=== PATIENT | male | born 1985 | race Caucasian/White ===

== ENCOUNTER 2018-05-10 12:50 | Emergency (ER) | payer SELFPAY ==
[2018-05-10 15:02] LABS: Potassium 3.9 mEq/L (3.6-5.0)
[2018-05-10 15:04] LABS: Absolute Lymphocytes (CBC) 1.7 K/uL (0.7-4.9); Absolute Monocytes 0.5 K/uL (0.1-1.3); Absolute Neutrophil 4.9 K/uL (1.8-8.0); Basophils % 1.2 % (0-1.3); Eosinophils % 2.5 % (0-4.4); Hematocrit 43.1 % (39.6-49.0); Lymphocytes % 23.3 % (15.3-44.8); MCH 30.5 pg (27.0-35.0); MCV 88.6 fL (80-100); MPV 8.5 fL (7.6-11.3); Monocytes % 7.1 % (3.3-12.3); RBC Red Blood Cell Count 4.86 M/uL (4.33-5.43)
[2018-05-10 15:08] LABS: Albumin 4.3 g/dL (3.2-5.5); Bilirubin Direct 0.1 mg/dL (0-0.2); Bilirubin Total 0.7 mg/dL (0.3-1.2); Magnesium 1.9 mg/dL (1.8-2.5); Protein, Total 7.5 g/dL (6.0-8.3); Protime INR 0.98
--- NOTE | 2018-05-10 15:29 | RAD REPORT ---
EXAM DESCRIPTION: Ilda Single View05/10/2018 2:51 pm CLINICAL HISTORY: Chest pain COMPARISON: August 2017 FINDINGS: The lungs appear clear of acute infiltrate. The heart is mildly enlarged. Prominence of t he belinda is unchanged IMPRESSION: No acute abnormalities displayed
--- NOTE | 2018-05-10 15:54 | EDPHYS ---
Physician Documentation [facility] Name: Zion Anand Age: 32 yrs Sex: Male : 1985 Arrival Date: 05/10/2018 Time: 12:53 Bed 26 Private MD: ED Physician Robin Encinas HPI: 05/10 14:54 This 32 yrs old Male presents to ER via Ambulatory with complaints of Chest jmm Pain - 4 days. 14:54 The patient or guardian reports chest pain that is located primarily in the substernal m area. The pain does not radiate. Associated signs and symptoms: Pertinent negatives: shortness of breath. The chest pain is described as aching. Duration: The patient or guardian reports multiple episodes, that are intermittent. 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 Patient admits to distant history of tobacco and IV drug use but denies use in the past 8 months. . Historical: - Allergies: 13:23 No Known Allergies; aa5 - PMHx: 13:23 "Lung collapsed"; aa5 - PSHx: 13:21 cleft pallet repair; open heart surgery (murmur); aa5 - Immunization history:: Adult Immunizations unknown. - Social history:: Smoking status: Patient/guardian denies using tobacco. - Ebola Screening: : No symptoms or risks identified at this time. ROS: 14:54 Constitutional: Negative for fever, chills, and weight loss. jmm 14:54 Respiratory: Negative for shortness of breath, cough, wheezing, and pleuritic chest pain, Abdomen/GI: Negative for abdominal pain, nausea, vomiting, diarrhea, and constipation, Back: Negative for injury and pain, : Negative for injury, bleeding, discharge, and swelling, MS/Extremity: Negative for injury and deformity, Skin: Negative for injury, rash, and discoloration, Neuro: Negative for headache, weakness, numbness, tingling, and seizure. 14:54 Cardiovascular: Positive for chest pain. 14:54 All other systems are negative. Exam: 14:54 Head/Face: atraumatic. Chest/axilla: Normal chest wall appearance and motion. jmm Nontender with no deformity. No lesions are appreciated. Abdomen/GI: Soft, non-tender, with normal bowel sounds. No distension or tympany. No guarding or rebound. No evidence of tenderness throughout. 14:54 Skin: Warm, dry with normal turgor. Normal color with no rashes, no lesions, and no evidence of cellulitis. MS/ Extremity: Pulses equal, no cyanosis. Neurovascular intact. Full, normal range of motion. Neuro: Awake and alert, GCS 15, oriented to person, place, time, and situation. Motor strength 5/5 in all extremities. Sensory grossly intact. Cerebellar exam normal. Normal gait. 14:54 Constitutional: The patient appears in no acute distress, alert, awake. 14:54 Cardiovascular: Rate: normal, Rhythm: regular, Heart sounds: murmur. 14:54 Psych: Behavior/mood is pleasant, cooperative. Vital Signs: 13:23 BP 119 / 78; Pulse 76; Resp 16 S; Temp 98.3(TE); Pulse Ox 98% on R/A; Weight 68.04 kg aa5 (R); Height 5 ft. 4 in. (162.56 cm) (R); Pain 0/10; 14:17 BP 103 / 69; Pulse 77; Resp 18; Pulse Ox 96% on R/A; aj1 15:33 BP 104 / 82; Pulse 67; Resp 18; Pulse Ox 97% on R/A; aj1 17:08 BP 121 / 76; Pulse 67; Resp 16; Pulse Ox 99% on R/A; kr2 13:23 Body Mass Index 25.75 (68.04 kg, 162.56 cm) aa5 MDM: 14:53 Patient medically screened. [facility] 14:54 Data reviewed: vital signs, nurses notes. [facility] 15:38 Differential diagnosis: acute myocardial infarction, acute pericarditis, chest wall jm pain, costochondritis, gastritis, gastroesophageal reflux disease (GERD), myocarditis, pulmonary embolus. Counseling: I had a detailed discussion with the patient and/or guardian regarding: the historical points, exam findings, and any diagnostic results supporting the discharge/admit diagnosis, lab results, radiology results, the need for outpatient follow up, to return to the emergency department if symptoms worsen or persist or if there are any questions or concerns that arise at home. ED course: HEART SCORE = 0. ED course: PERC NEGATIVE. 05/10 14:31 Order name: Basic Metabolic Panel; Complete Time: 15:29 ss 06/15 14:31 Order name: BNP; Complete Time: 15:29 05/10 14:31 Order name: CBC with Diff; Complete Time: 15:37 05/10 14:31 Order name: Ckmb; Complete Time: 15:29 05/10 14:31 Order name: CPK; Complete Time: 15:29 05/10 14:31 Order name: LFT's; Complete Time: 15:29 05/10 14:31 Order name: Magnesium; Complete Time: 15:29 05/10 14:31 Order name: PT-INR; Complete Time: 15:29 05/10 14:31 Order name: Ptt, Activated; Complete Time: 15:29 05/10 14:31 Order name: Troponin (emerg Dept Use Only); Complete Time: 15:29 05/10 14:31 Order name: XRAY Chest (1 view); Complete Time: 15:31 05/10 14:31 Order name: EKG; Complete Time: 14:31 05/10 14:31 Order name: Cardiac monitoring; Complete Time: 14:40 05/10 14:31 Order name: EKG - Nurse/Tech; Complete Time: 14:40 05/10 14:31 Order name: IV Saline Lock; Complete Time: 14:40 05/10 14:31 Order name: Labs collected and sent; Complete Time: 14:40 05/10 14:31 Order name: O2 Per Protocol; Complete Time: 14:40 05/10 14:31 Order name: O2 Sat Monitoring; Complete Time: 14:40 ss Administered Medications: No medications were administered Disposition: 05/10/18 15:53 Discharged to Home. Impression: Chest pain, unspecified. - Condition is Stable. - Discharge Instructions: Nonspecific Chest Pain. - Medication Reconciliation Form, Thank You Letter, Antibiotic Education, Prescription Opioid Use form. - Follow up: Johan Hess MD; When: 2 - 3 days; Reason: Continuance of care. - Problem is new. - Symptoms are unchanged. - Notes: Please follow up with Cardiology for reevaluation. Please return to the ED if you develop worseningchest pain or shortness of breath. Addendum: 05/14/2018 07:04 Co-signature as Attending Physician, Robin Encinas MD I agree with the assessment and k dr plan of care. Signatures: Dispatcher [employer] EDMS Robin Encinas MD MD kdr Mickail, Joel, PA PA jmm Calderon, Audri, RN RN aa5 Janette Torres RN RN ss Terrie Mast RN RN kr2 Corrections: (The following items were deleted from the chart) 05/10 17:10 15:53 05/10/2018 15:53 Discharged to Home. Impression: Chest pain, unspecified. kr2 Condition is Stable. Forms are Medication Reconciliation Form, Thank You Letter, Antibiotic Education, Prescription Opioid Use. Follow up: Johan Hess; When: 2 - 3 days; Reason: Continuance of care. Problem is new. Symptoms are unchanged. vasquez
--- NOTE | 2018-05-10 15:54 | ER ---
Nurse's Notes [facility] Name: Zion Anand Age: 32 yrs Sex: Male : 1985 Arrival Date: 05/10/2018 Time: 12:53 Bed 26 Private MD: Diagnosis: Chest pain, unspecified Presentation: 05/10 13:20 Presenting complaint: Patient states: mid-sternal chest pain that began 4 days ago. Pt aa5 states "I am always short of breath so that is not different". Transition of care: patient was not received from another setting of care. Onset of symptoms was April 2018. Risk Assessment: Do you want to hurt yourself or someone else? Patient reports no desire to harm self or others. Initial Sepsis Screen: Does the patient meet any 2 criteria? No. Patient's initial sepsis screen is negative. Does the patient have a suspected source of infection? No. Patient's initial sepsis screen is negative. Care prior to arrival: None. 13:20 Method Of Arrival: Ambulatory aa5 13:20 Acuity: ELZBIETA 3 aa5 Historical: - Allergies: 13:23 No Known Allergies; aa5 - PMHx: 13:23 "Lung collapsed"; aa5 - PSHx: 13:21 cleft pallet repair; open heart surgery (murmur); aa5 - Immunization history:: Adult Immunizations unknown. - Social history:: Smoking status: Patient/guardian denies using tobacco. - Ebola Screening: : No symptoms or risks identified at this time. Screenin:17 Abuse screen: Denies threats or abuse. Denies injuries from another. Nutritional aj1 screening: No deficits noted. Tuberculosis screening: No symptoms or risk factors identified. Assessment: 14:17 General: Appears in no apparent distress. uncomfortable, Behavior is calm, cooperative, aj1 appropriate for age. Pain: Complains of pain in anterior aspect of left upper chest Pain does not radiate. Pain currently is 4 out of 10 on a pain scale. Quality of pain is described as aching, Pain began 4 days ago Is intermittent, Alleviated by nothing. Aggravated by nothing. Neuro: Level of Consciousness is awake, alert, obeys commands, Oriented to person, place, time, situation, Speech Facial symmetry appears normal. Cardiovascular: Reports chest pain, palpitations, shortness of breath, States that he is always SOB, no changes in the amount of shortness of breath from his usual Heart tones S1 S2 present Murmur present Patient's skin is warm and dry. Rhythm is regular Chest pain is described as mild, quality is aching is located in left anterior chest wall began 4 days ago episodes are intermittent. Respiratory: Reports shortness of breath Airway is patent Respiratory effort is even, unlabored, Respiratory pattern is regular, symmetrical, Breath sounds are clear bilaterally. Denies cough. GI: No signs and/or symptoms were reported involving the gastrointestinal system. : No signs and/or symptoms were reported regarding the genitourinary system. EENT: No signs and/or symptoms were reported regarding the EENT system. Derm: No signs and/or symptoms reported regarding the dermatologic system. Skin is pink, warm \\T\\ dry. normal. Musculoskeletal: No signs and/or symptoms reported regarding the musculoskeletal system. Circulation, motion, and sensation intact. 15:33 Reassessment: Patient appears in no apparent distress at this time. No changes from aj1 previously documented assessment. Patient and/or family updated on plan of care and expected duration. Pain level reassessed. Patient is alert, oriented x 3, equal unlabored respirations, skin warm/dry/pink. Vital Signs: 13:23 BP 119 / 78; Pulse 76; Resp 16 S; Temp 98.3(TE); Pulse Ox 98% on R/A; Weight 68.04 kg aa5 (R); Height 5 ft. 4 in. (162.56 cm) (R); Pain 0/10; 14:17 BP 103 / 69; Pulse 77; Resp 18; Pulse Ox 96% on R/A; aj1 15:33 BP 104 / 82; Pulse 67; Resp 18; Pulse Ox 97% on R/A; aj1 17:08 BP 121 / 76; Pulse 67; Resp 16; Pulse Ox 99% on R/A; kr2 13:23 Body Mass Index 25.75 (68.04 kg, 162.56 cm) aa5 ED Course: 12:53 Patient arrived in ED. sb2 13:21 Triage completed. aa5 13:21 Arm band placed on. aa5 13:40 EKG done, by technical laboratory asst. reviewed by Robin Encinas MD. at1 14:15 Joshua Walton PA is PHCP. [facility] 14:15 Robin Encinas MD is Attending Physician. [facility] 14:17 Raisa Garcia, RN is Primary Nurse. aj 14:17 Patient has correct armband on for positive identification. Bed in low position. Call aj1 light in reach. Side rails up X 1. court recording monitor on. Pulse ox on. NIBP on. 14:17 No provider procedures requiring assistance completed. Patient maintains SpO2 aj saturation greater than 95% on room air. 14:40 Initial lab(s) drawn, by me, sent to lab. Inserted saline lock: 18 gauge in right aj1 antecubital area, using aseptic technique. Blood collected. 14:50 XRAY Chest (1 view) In Process Unspecified. EDMS 14:51 X-ray completed. Portable x-ray completed in exam room. Patient tolerated procedure [facility] well. 15:52 Johan Hess MD is Referral Physician. jm 17:10 IV discontinued, intact, bleeding controlled, No redness/swelling at site. Pressure kr2 dressing applied. Administered Medications: No medications were administered Outcome: 15:53 Discharge ordered by MD. [facility] 17:08 Discharged to home ambulatory, with friend. kr2 17:08 Condition: good 17:08 Discharge instructions given to patient, Instructed on discharge instructions, follow up and referral plans. Demonstrated understanding of instructions, follow-up care. 17:10 Patient left the ED. kr2 Signatures: Dispatcher [employer] EDMS Raisa Garcia, RN RN aj1 Joshua Walton PA PA [facility] Bianca Louis, RN RN aa5 Valerie flor, tax manager cpa EKG Tat1 Concetta Sims kp1 Terrie Mast RN RN kr2 Zee Sandoval sb2
[2018-05-10 17:47] VITALS: TEMP 98.3
[2018-05-10 17:50] VITALS: BP 121/76; O2SAT 99
--- NOTE | 2018-05-11 06:17 | EKG ---
Test Date: 2018-05-10 Test Time: 13:23:52 Health Education Director: RAMIREZ MEASUREMENT RESULTS: Intervals: Rate: 73 AL: 156 QRSD: 158 QT: 420 QTc: 462 [place]: P: 40 AL: 156 QRS: -74 T: 70 INTERPRETIVE STATEMENTS: Normal sinus rhythm Right bundle branch block Left anterior fascicular block Bifascicular block Abnormal ECG Compared to ECG 03/16/2015 16:35:21 No significant changes Electronically Signed On 05-11-18 06:16:55 CDT by Johan Hess
== END 2018-05-10 17:10 | disposition home or self-care (01) ==
LOC: ER 12:50
DX: R07.9 Chest pain, unspecified (principal)
CPT/HCPCS: 36415; 71045; 80048; 80076; 82550; 82553; 83735; 83880; 84484; 85025; 85610; 85730; 93005; 99285

== ENCOUNTER 2018-10-14 19:32 | Emergency (ER) | payer SELFPAY ==
[2018-10-14] MEDS ORDERED: NA CHLORIDE 0.9% 1,000 ML ONE (20:51)
[2018-10-14] MEDS ORDERED: CLINDAMYCIN 900MG/D5W 900 MG/50 ML IVPB IV ONE (20:51)
[2018-10-14] MEDS ORDERED: DEXAMETHASONE 4 MG/ML VIAL ONE (20:51)
[2018-10-14 20:54] LABS: Absolute Monocytes 1.1 K/uL (0.1-1.3); Absolute Neutrophil 10.2 K/uL (1.8-8.0); Basophils % 0.6 % (0-1.3); Eosinophils % 0.7 % (0-4.4); Hematocrit 45.8 % (39.6-49.0); Lymphocytes % 15.1 % (15.3-44.8); MCH 30.3 pg (27.0-35.0); MCV 89.4 fL (80-100); MPV 8.4 fL (7.6-11.3); Monocytes % 8.4 % (3.3-12.3); RBC Red Blood Cell Count 5.12 M/uL (4.33-5.43)
[2018-10-14 21:05] LABS: Albumin 4.2 g/dL (3.4-5.0); Bilirubin Total 0.9 mg/dL (0.2-1.0); Potassium 3.8 mmol/L (3.5-5.1); Protein, Total 8.2 g/dL (6.4-8.2)
--- NOTE | 2018-10-14 23:32 | ER ---
Nurse's Notes [facility] Name: Zion Anand II Age: 33 yrs Sex: Male : 1985 Arrival Date: 10/14/2018 Time: 19:47 Bed 27 Private MD: Diagnosis: Acute tonsillitis, unspecified;Peritonsillar abscess Presentation: 10/14 19:59 Presenting complaint: Patient states: sore throat since yesterday, worse on left with tl3 noticeable swelling to the left tonsil. Right tonsil reddened. Transition of care: patient was not received from another setting of care. Onset of symptoms was October 13, 2018. Risk Assessment: Do you want to hurt yourself or someone else? Patient reports no desire to harm self or others. Initial Sepsis Screen: Does the patient meet any 2 criteria? No. Patient's initial sepsis screen is negative. Does the patient have a suspected source of infection? No. Patient's initial sepsis screen is negative. Care prior to arrival: None. 19:59 Method Of Arrival: Ambulatory tl3 19:59 Acuity: ELZBIETA 3 tl3 Triage Assessment: 20:08 General: Appears uncomfortable, slender, well groomed, well developed, well nourished, tl3 Behavior is calm, cooperative, appropriate for age. Pain: Complains of pain in sore throat. EENT: Throat is reddened has enlarged tonsils on left. Neuro: Level of Consciousness is awake, alert, obeys commands. Cardiovascular: Patient's skin is warm and dry. Respiratory: Airway is patent is compromised Respiratory effort is even, unlabored, Respiratory pattern is regular, symmetrical, Breath sounds are clear bilaterally. GI: No signs and/or symptoms were reported involving the gastrointestinal system. : No signs and/or symptoms were reported regarding the genitourinary system. Derm: No signs and/or symptoms reported regarding the dermatologic system. Musculoskeletal: No signs and/or symptoms reported regarding the musculoskeletal system. Historical: - Allergies: 20:08 No Known Allergies; tl3 - Home Meds: 20:08 None [Active]; tl3 - PMHx: 20:08 "Lung collapsed"; Charge syndrome; cleft Palette; tl3 - PSHx: 20:08 Two Open Heart Surgeries; heart cath; Ear Tubes; tl3 - Immunization history:: Adult Immunizations up to date. - Social history:: Smoking status: Patient/guardian denies using tobacco, never smoked. - Ebola Screening: : No symptoms or risks identified at this time. Screenin:25 Abuse screen: Denies threats or abuse. Denies injuries from another. Nutritional mg2 screening: No deficits noted. Tuberculosis screening: No symptoms or risk factors identified. Fall Risk IV access (20 points). Assessment: 22:01 Reassessment: Patient appears in no apparent distress at this time. No changes from tl3 previously documented assessment. Patient and/or family updated on plan of care and expected duration. Pain level reassessed. Patient is alert, oriented x 3, equal unlabored respirations, skin warm/dry/pink. EKG and Chest X-ray complete. 23:21 Reassessment: Patient appears in no apparent distress at this time. No changes from tl3 previously documented assessment. Patient and/or family updated on plan of care and expected duration. Pain level reassessed. Patient is alert, oriented x 3, equal unlabored respirations, skin warm/dry/pink. awaiting CT Results, no other needs at this time. Vital Signs: 20:08 BP 128 / 70; Pulse 91; Resp 18; Temp 99.0; Pulse Ox 100% on R/A; tl3 21:26 BP 122 / 85; Pulse 93; Resp 18; Pulse Ox 98% on R/A; Pain 5/10; mg2 22:01 BP 129 / 87; Pulse 74; Resp 18; Pulse Ox 99% on 2 lpm NC; tl3 23:21 BP 107 / 70; Pulse 83; Resp 18; Pulse Ox 97% on R/A; tl3 ED Course: 19:47 Patient arrived in ED. ak1 19:50 Eddie Ortiz MD is Attending Physician. tw4 19:51 Chayito Green, MARI is Primary Nurse. tl3 19:59 Strep Sent. tl3 20:01 Triage completed. tl3 20:08 Arm band placed on right wrist. tl3 20:40 Inserted saline lock: 20 gauge in right forearm, using aseptic technique. Blood jb5 collected. 21:25 Patient has correct armband on for positive identification. Pulse ox on. NIBP on. Door mg2 closed. Warm blanket given. 21:54 CMP Sent. tl3 21:54 CBC with Diff Sent. tl3 22:01 No provider procedures requiring assistance completed. tl3 23:30 Trinidad Renee MD is Referral Physician. tw4 23:33 IV discontinued, intact, bleeding controlled, No redness/swelling at site. Pressure tl3 dressing applied. Administered Medications: 20:54 Drug: NS 0.9% 1000 ml Route: IV; Rate: 1 bolus; Site: right forearm; mg2 21:57 Follow up: IV Status: Completed infusion; IV Intake: 1000ml tl3 20:54 Drug: Decadron - Dexamethasone 10 mg Route: IVP; Site: right forearm; mg2 21:55 Follow up: Response: No adverse reaction tl3 20:54 Drug: Clindamycin 900 mg Route: IVPB; Infused Over: 30 mins; Site: right forearm; mg2 21:55 Follow up: IV Status: Completed infusion; IV Intake: 50ml tl3 Intake: 21:55 IV: 50ml; Total: 50ml. tl3 21:57 IV: 1000ml; Total: 1050ml. tl3 Outcome: 23:31 Discharge ordered by . tw4 23:54 Discharged to home ambulatory. mg2 23:54 Condition: stable 23:54 Discharge instructions given to patient, Instructed on discharge instructions, follow up and referral plans. medication usage, Demonstrated understanding of instructions, follow-up care, medications, Prescriptions given X 3. 23:55 Patient left the ED. mg2 Signatures: Vilma Wilson, RN RN ak1 Lola Cruz jb5 Eddie Ortiz MD MD tw4 Chayito Green RN RN tl3 Faheem Brown RN RN mg2
--- NOTE | 2018-10-14 23:32 | EDPHYS ---
Physician Documentation [facility] Name: Zion Anand II Age: 33 yrs Sex: Male : 1985 Arrival Date: 10/14/2018 Time: 19:47 Bed 27 Private MD: ED Physician Eddie Ortiz HPI: 10/14 23:42 This 33 yrs old Male presents to ER via Ambulatory with complaints of Sore tw4 Throat. 23:42 The patient presents with sore throat. The patient describes throat pain as burning. tw4 Onset: The symptoms/episode began/occurred yesterday. Severity of symptoms: At their worst the symptoms were moderate, in the emergency department the symptoms are unchanged. Modifying factors: The symptoms are alleviated by nothing, the symptoms are aggravated by swallowing. Associated signs and symptoms: The patient has no apparent associated signs or symptoms. The patient has not experienced similar symptoms in the past. Historical: - Allergies: 20:08 No Known Allergies; tl3 - Home Meds: 20:08 None [Active]; tl3 - PMHx: 20:08 "Lung collapsed"; Charge syndrome; cleft Palette; tl3 - PSHx: 20:08 Two Open Heart Surgeries; heart cath; Ear Tubes; tl3 - Immunization history:: Adult Immunizations up to date. - Social history:: Smoking status: Patient/guardian denies using tobacco, never smoked. - Ebola Screening: : No symptoms or risks identified at this time. ROS: 23:42 Constitutional: Negative for fever, chills, and weight loss, Eyes: Negative for injury, tw4 pain, redness, and discharge. 23:42 Cardiovascular: Negative for chest pain, palpitations, and edema, Respiratory: Negative for shortness of breath, cough, wheezing, and pleuritic chest pain, Abdomen/GI: Negative for abdominal pain, nausea, vomiting, diarrhea, and constipation, Back: Negative for injury and pain, MS/Extremity: Negative for injury and deformity, Skin: Negative for injury, rash, and discoloration, Neuro: Negative for headache, weakness, numbness, tingling, and seizure. 23:42 ENT: Positive for sore throat. Exam: 23:42 Constitutional: This is a well developed, well nourished patient who is awake, alert, tw4 and in no acute distress. Head/Face: Normocephalic, atraumatic. 23:42 ENT: Posterior pharynx: Uvula: midline, erythema, that is moderate, peritonsillar mass, is noted on left. Vital Signs: 20:08 BP 128 / 70; Pulse 91; Resp 18; Temp 99.0; Pulse Ox 100% on R/A; tl3 21:26 BP 122 / 85; Pulse 93; Resp 18; Pulse Ox 98% on R/A; Pain 5/10; mg2 22:01 BP 129 / 87; Pulse 74; Resp 18; Pulse Ox 99% on 2 lpm NC; tl3 23:21 BP 107 / 70; Pulse 83; Resp 18; Pulse Ox 97% on R/A; tl3 MDM: 19:51 Patient medically screened. tw4 23:42 Differential diagnosis: epiglottitis, group A strep tonsillitis, influenza, laryngitis, tw4 christine's angina, peritonsillar abscess retropharyngeal abcess. Data reviewed: vital signs, nurses notes. 10/14 19:55 Order name: Strep 3 10/14 20:25 Order name: Group A Streptococcus Rapid Sc; Complete Time: 23:30 EDMS 10/14 20:35 Order name: CBC with Diff tw4 10/14 20:35 Order name: CMP tw4 10/14 21:23 Order name: CBC with Automated Diff; Complete Time: 23:29 EDMS 10/14 23:30 Interpretation: Normal except: WBC 13.5; MICHAEL% 75.2; LYM% 15.1; NEUT A 10.2. tw4 10/14 21:24 Order name: Comprehensive Metabolic Panel; Complete Time: 23:30 EDMS 10/14 23:30 Interpretation: Normal except: GFR 69; ALK 130. tw4 10/14 21:58 Order name: CT Soft Tissue Neck W/contr tw4 Administered Medications: 20:54 Drug: NS 0.9% 1000 ml Route: IV; Rate: 1 bolus; Site: right forearm; mg2 21:57 Follow up: IV Status: Completed infusion; IV Intake: 1000ml tl3 20:54 Drug: Decadron - Dexamethasone 10 mg Route: IVP; Site: right forearm; mg2 21:55 Follow up: Response: No adverse reaction tl3 20:54 Drug: Clindamycin 900 mg Route: IVPB; Infused Over: 30 mins; Site: right forearm; mg2 21:55 Follow up: IV Status: Completed infusion; IV Intake: 50ml tl3 Disposition: 10/14/18 23:31 Discharged to Home. Impression: Acute tonsillitis, unspecified, Peritonsillar abscess. - Condition is Stable. - Discharge Instructions: Peritonsillar Abscess, Tonsillitis. - Prescriptions for Cleocin 300 mg Oral Capsule - take 1 capsule by ORAL route every 6 hours for 10 days; 40 capsule. Ibuprofen 800 mg Oral Tablet - take 1 tablet by ORAL route every 12 hours As needed take with food; 20 tablet. Medrol ([place]) 4 mg Oral Tablets, Dose Pack - take 1 tablet by ORAL route as directed - follow package instructions; 1 packet. - Medication Reconciliation Form, Thank You Letter, Antibiotic Education, Prescription Opioid Use form. - Follow up: Trinidad Renee MD; When: Upon discharge from the Emergency Department; Reason: Further diagnostic work-up, Recheck today's complaints, Continuance of care. Signatures: Dispatcher [employer] Eddie Diez MD MD tw4 Chayito Green RN RN tl3 Faheem Brown, MARI RN mg2 Corrections: (The following items were deleted from the chart) 23:55 23:31 10/14/2018 23:31 Discharged to Home. Impression: Acute tonsillitis, unspecified; mg2 Peritonsillar abscess. Condition is Stable. Forms are Medication Reconciliation Form, Thank You Letter, Antibiotic Education, Prescription Opioid Use. Follow up: Trinidad Renee; When: Upon discharge from the Emergency Department; Reason: Further diagnostic work-up, Recheck today's complaints, Continuance of care. tw4
[2018-10-15 01:23] VITALS: TEMP 99
[2018-10-15 01:26] VITALS: BP 107/70; O2SAT 97
--- NOTE | 2018-10-15 08:24 | RAD REPORT ---
EXAM DESCRIPTION: CT - Soft Tissue Neck W/Contr CLINICAL HISTORY: SORE THROAT Fever, neck pain COMPARISON: SOFT TISSUE NECK W O CONTRAST dated 03/26/[address] scans are performed using dose optimization technique as appropriate and may includ e automated exposure control or mA/KV adjustment according to patient size. FINDINGS: Asymmetrically enlarged left palatine tonsil is present compatible with tonsillar inflamma tion. A small left anterolateral peritonsillar fluid collection measuring 10 x 10 mm compatible with a small peritonsillar abscess. Oropharyngeal mucosal thickening enhancement is seen compatible with p haryngitis. Asymmetrically enlarged and enhancing left submandibular and sublingual glands noted with several enl arged lymph nodes at level I compatible with sialadenitis. No prevertebral abscess suspected. IMPRESSION: Significant palatine tonsil enlargement, greater on the left, compatible with tonsilliti s. A left anterolateral 10 x 10 mm peritonsillar abscess is seen. Asymmetrically enlarged hyperenhancing left submandibular and sublingual glands consistent with siala denitis.
== END 2018-10-14 23:55 | disposition home or self-care (01) ==
LOC: ER 19:32
DX: J03.90 Acute tonsillitis, unspecified (principal)
CPT/HCPCS: 36415; 70491; 80053; 85025; 87070; 87081; 96365; 96375; 99284; J7030

== ENCOUNTER 2018-11-22 21:10 | Emergency (ER) | payer SELFPAY ==
--- NOTE | 2018-11-22 22:42 | EDPHYS ---
Physician Documentation [facility] Name: Zion Anand II Age: 33 yrs Sex: Male : 1985 Arrival Date: 11/22/2018 Time: 21:12 Bed 10 Private MD: None, None ED Physician Robin Encinas HPI: 11/22 22:38 This 33 yrs old Male presents to ER via Ambulatory with complaints of Hand jr8 Injury. 22:38 The patient or guardian reports decreased range of motion, pain. The complaints affect jr8 the CMC of right thumb. Context: The problem was sustained outdoors. Onset: The symptoms/episode began/occurred acutely, today. Modifying factors: The symptoms are alleviated by nothing, the symptoms are aggravated by movement. Associated signs and symptoms: The patient has no apparent associated signs or symptoms. Severity of symptoms: At their worst the symptoms were mild, in the emergency department the symptoms are unchanged. The patient has not experienced similar symptoms in the past. The patient has not recently seen a physician. [place] palm of left hand. Pain, swelling, and tenderness since incident. Historical: - Allergies: 21:25 No Known Allergies; aj - Home Meds: 21:25 None [Active]; aj - PMHx: 21:25 "Lung collapsed"; CHARGE SYNDROME; cleft Palette; aj - PSHx: 21:25 Two Open Heart Surgeries; heart cath; Ear Tubes; aj - Immunization history:: Adult Immunizations up to date. - Social history:: Smoking status: Patient/guardian denies using tobacco. - Ebola Screening: : Patient negative for fever greater than or equal to 101.5 degrees Fahrenheit, and additional compatible Ebola Virus Disease symptoms Patient denies exposure to infectious person Patient denies travel to an Ebola-affected area in the 21 days before illness onset No symptoms or risks identified at this time. ROS: 22:38 Eyes: Negative for injury, pain, redness, and discharge, ENT: Negative for injury, jr8 pain, and discharge, Neck: Negative for injury, pain, and swelling, Cardiovascular: Negative for chest pain, palpitations, and edema, Respiratory: Negative for shortness of breath, cough, wheezing, and pleuritic chest pain, Abdomen/GI: Negative for abdominal pain, nausea, vomiting, diarrhea, and constipation, Back: Negative for injury and pain, Skin: Negative for injury, rash, and discoloration, Neuro: Negative for headache, weakness, numbness, tingling, and seizure. 22:38 MS/extremity: Positive for decreased range of motion, pain, swelling, tenderness, of the left hand. Exam: 22:38 Eyes: Pupils equal round and reactive to light, extra-ocular motions intact. Lids and jr8 lashes normal. Conjunctiva and sclera are non-icteric and not injected. Cornea within normal limits. Periorbital areas with no swelling, redness, or edema. ENT: Nares patent. No nasal discharge, no septal abnormalities noted. Tympanic membranes are normal and external auditory canals are clear. Oropharynx with no redness, swelling, or masses, exudates, or evidence of obstruction, uvula midline. Mucous membranes moist. Neck: Trachea midline, no thyromegaly or masses palpated, and no cervical lymphadenopathy. Supple, full range of motion without nuchal rigidity, or vertebral point tenderness. No Meningismus. Cardiovascular: Regular rate and rhythm with a normal S1 and S2. No gallops, murmurs, or rubs. Normal PMI, no JVD. No pulse deficits. Respiratory: Lungs have equal breath sounds bilaterally, clear to auscultation and percussion. No rales, rhonchi or wheezes noted. No increased work of breathing, no retractions or nasal flaring. Abdomen/GI: Soft, non-tender, with normal bowel sounds. No distension or tympany. No guarding or rebound. No evidence of tenderness throughout. Back: No spinal tenderness. No costovertebral tenderness. Full range of motion. Skin: Warm, dry with normal turgor. Normal color with no rashes, no lesions, and no evidence of cellulitis. Neuro: Awake and alert, GCS 15, oriented to person, place, time, and situation. Cranial nerves II-XII grossly intact. Motor strength 5/5 in all extremities. Sensory grossly intact. Cerebellar exam normal. Normal gait. 22:38 Musculoskeletal/extremity: Extremities: grossly normal except: noted in the left hand: pain, swelling, tenderness, thenar region of left hand , ROM: full active range of motion, full passive range of motion, limited active range of motion due to pain, limited passive range of motion due to pain, Circulation is intact in all extremities. Sensation intact. Vital Signs: 21:25 BP 142 / 94; Pulse 71; Resp 16; Temp 98.2; Pulse Ox 99% on R/A; Weight 68.04 kg; Height aj 5 ft. 4 in. (162.56 cm); 22:45 BP 124 / 82; Pulse 82; Resp 16; Pulse Ox 100% on R/A; mt 21:25 Body Mass Index 25.75 (68.04 kg, 162.56 cm) MDM: 21:57 Patient medically screened. jr8 22:38 Data reviewed: vital signs, nurses notes, radiologic studies, plain films, and as a jr8 result, I will discharge patient. Data interpreted: Pulse oximetry: on room air is 99 %. Interpretation: normal. Counseling: I had a detailed discussion with the patient and/or guardian regarding: the historical points, exam findings, and any diagnostic results supporting the discharge/admit diagnosis, radiology results, the need for outpatient follow up, a orthopedic surgeon, to return to the emergency department if symptoms worsen or persist or if there are any questions or concerns that arise at home. 11/22 21:27 Order name: XRAY Hand LEFT 3 View aj Administered Medications: No medications were administered Disposition: 11/23 06:43 Co-signature as Attending Physician, Robin Encinas MD I agree with the assessment and kdr plan of care. Disposition: 11/22/18 22:41 Discharged to Home. Impression: Contusion of left hand. - Condition is Stable. - Discharge Instructions: Hand Contusion. - Prescriptions for Ibuprofen 800 mg Oral Tablet - take 1 tablet by ORAL route every 12 hours As needed take with food; 20 tablet. - Medication Reconciliation Form, Thank You Letter, Antibiotic Education, Prescription Opioid Use form. - Follow up: Jeffery Lai MD; When: 1 week; Reason: Recheck today's complaints, Continuance of care, Re-evaluation by your physician. - Problem is new. - Symptoms have improved. Signatures: Dispatcher [employer] Valerie Walsh RN Robin Turner MD MD kdr Ballard, Brenda, RN RN bb Roszak, Josh, PA PA jr8 Corrections: (The following items were deleted from the chart) 11/22 22:54 22:41 11/22/2018 22:41 Discharged to Home. Impression: Contusion of left hand. bb Condition is Stable. Forms are Medication Reconciliation Form, Thank You Letter, Antibiotic Education, Prescription Opioid Use. Follow up: Jeffery Lai; When: 1 week; Reason: Recheck today's complaints, Continuance of care, Re-evaluation by your physician. Problem is new. Symptoms have improved. jr8
--- NOTE | 2018-11-22 22:42 | ER ---
Nurse's Notes [facility] Name: Zion Anand II Age: 33 yrs Sex: Male : 1985 Arrival Date: 11/22/2018 Time: 21:12 Bed 10 Private MD: None, None Diagnosis: Contusion of left hand Presentation: 11/22 21:24 Presenting complaint: Patient states: Fell onto out stretched left hand 1 hour [employer]. aj Transition of care: patient was not received from another setting of care. Onset of symptoms was November 22, 2018. Risk Assessment: Do you want to hurt yourself or someone else? Patient reports no desire to harm self or others. Initial Sepsis Screen: Does the patient meet any 2 criteria? No. Patient's initial sepsis screen is negative. Does the patient have a suspected source of infection? No. Patient's initial sepsis screen is negative. Care prior to arrival: None. 21:24 Method Of Arrival: Ambulatory 21:24 Acuity: ELZBIETA 4 aj Triage Assessment: 21:25 General: Appears in no apparent distress. comfortable, Behavior is calm, cooperative, aj appropriate for age. Pain: Complains of pain in palmar aspect of proximal phalanx of left thumb, heel of left hand and palm of left hand. Neuro: Level of Consciousness is awake, alert, obeys commands, Oriented to person, place, time, situation, Appropriate for age. Respiratory: Airway is patent Respiratory effort is even, unlabored, Respiratory pattern is regular, symmetrical. Derm: Skin is intact, is healthy with good turgor, Skin is pink, warm \\T\\ dry. normal. Musculoskeletal: Reports pain in left hand. 21:43 Injury Description: pt states he fell on left hand approx an hour ago now has swelling bb and pain to left hand. Historical: - Allergies: 21:25 No Known Allergies; aj - Home Meds: 21:25 None [Active]; aj - PMHx: 21:25 "Lung collapsed"; CHARGE SYNDROME; cleft Palette; aj - PSHx: 21:25 Two Open Heart Surgeries; heart cath; Ear Tubes; aj - Immunization history:: Adult Immunizations up to date. - Social history:: Smoking status: Patient/guardian denies using tobacco. - Ebola Screening: : Patient negative for fever greater than or equal to 101.5 degrees Fahrenheit, and additional compatible Ebola Virus Disease symptoms Patient denies exposure to infectious person Patient denies travel to an Ebola-affected area in the 21 days before illness onset No symptoms or risks identified at this time. Screenin:42 Abuse screen: Denies threats or abuse. Nutritional screening: No deficits noted. bb Tuberculosis screening: No symptoms or risk factors identified. Fall Risk None identified. Assessment: 21:42 General: Appears in no apparent distress. uncomfortable, Behavior is calm, cooperative. bb Pain: Complains of pain in left hand. Neuro: Level of Consciousness is awake, alert, obeys commands, Oriented to person, place, time, situation. Cardiovascular: No deficits noted. Respiratory: Respiratory effort is even, unlabored, Respiratory pattern is regular. GI: No deficits noted. No signs and/or symptoms were reported involving the gastrointestinal system. Derm: Skin is pink, warm \\T\\ dry. Musculoskeletal: Swelling present in left hand Reports pain in left hand. 22:53 Reassessment: Patient is alert, oriented x 3, equal unlabored respirations, skin bb warm/dry/pink. pt verbalized understanding of and agrees to plan of care discharge instructions given pt ambulated with steady gait to exit accompanied by family. Vital Signs: 21:25 BP 142 / 94; Pulse 71; Resp 16; Temp 98.2; Pulse Ox 99% on R/A; Weight 68.04 kg; Height aj 5 ft. 4 in. (162.56 cm); 22:45 BP 124 / 82; Pulse 82; Resp 16; Pulse Ox 100% on R/A; mt 21:25 Body Mass Index 25.75 (68.04 kg, 162.56 cm) aj ED Course: 21:12 Patient arrived in ED. es 21:13 None, None is Private Physician. es 21:25 Triage completed. aj 21:25 Arm band placed on left wrist. Patient placed in waiting room, Patient notified of wait aj time. X-ray ordered. 21:42 Fabi Gracia, MARI is Primary Nurse. bb 21:42 Patient has correct armband on for positive identification. Call light in reach. bb 21:56 Eric Ruth PA is PHCP. jr8 21:57 Robin Encinas MD is Attending Physician. jr8 21:57 XRAY Hand LEFT 3 View In Process Unspecified. EDMS 22:41 Jeffery Lai MD is Referral Physician. jr8 22:54 No provider procedures requiring assistance completed. Patient did not have IV access bb during this emergency room visit. Administered Medications: No medications were administered Outcome: : Discharge ordered by . jr8 22:54 Discharged to home ambulatory, with family. bb 22:54 Condition: stable 22:54 Discharge instructions given to patient, Instructed on discharge instructions, follow up and referral plans. medication usage, Demonstrated understanding of instructions, follow-up care, medications, Prescriptions given X 1. 22:54 Patient left the ED. bb Signatures: Dispatcher [employer] EDNM Valerie Jeronimo, RN RN Karolyn Ni Brenda, RN RN Eric Casper PA PA jr8 Arlyn Garcia mt
[2018-11-22 22:59] VITALS: TEMP 98.2
[2018-11-22 23:00] VITALS: BP 124/82; O2SAT 100
--- NOTE | 2018-11-23 09:00 | RAD REPORT ---
EXAM DESCRIPTION: RAD - Hand Left 3 View - 11/22/2018 9:58 pm CLINICAL HISTORY: Fall, hand pain ; site of pain not delineated COMPARISON: None. FINDINGS: No gross fracture deformity is seen. There is no dislocation or periosteal reaction. There is faint lucency in the midshaft fifth metacarpal. Fracture is unlikely but can be correlated with l ocalized symptoms. No other suspicious bone or joint finding. No foreign body or other soft tissue abnormality. IMPRESSION: No fracture confirmed. No acute bone or joint finding seen in the left hand. Faint curvilinear lucency midshaft left fifth metacarpal doubtful as being fracture. Correlation can be made with any localizing symptoms.
== END 2018-11-22 22:54 | disposition home or self-care (01) ==
LOC: ER 21:10
DX: S60.222A Contusion of left hand, initial encounter (principal); W19.XXXA Unspecified fall, initial encounter
CPT/HCPCS: 99283

== ENCOUNTER 2019-07-06 19:18 | Emergency (ER) | payer SELFPAY ==
[2019-07-06] MEDS ORDERED: IBUPROFEN 200 MG TAB PO ONE (19:55)
--- NOTE | 2019-07-06 20:34 | EDPHYS ---
Physician Documentation [facility] Name: Zion Anand II Age: 33 yrs Sex: Male : 1985 Arrival Date: 07/06/2019 Time: 19:23 Bed 6 Private MD: ED Physician David Morillo HPI: 07/06 19:31 This 33 yrs old Male presents to ER via Ambulatory with complaints of Finger jmm Injury. 19:31 The patient or guardian reports injury, pain. Onset: The symptoms/episode jmm began/occurred acutely, yesterday. Modifying factors: The symptoms are alleviated by nothing, the symptoms are aggravated by nothing. Associated signs and symptoms: Pertinent negatives: cyanosis distally, decreased sensation distally, numbness distally, tingling distally. This is a 33 year old male with charge syndrome that presents to the ED with complaints of right 5th finger pain after falling while playing football. Denies other injury. Patient concerned finger may be dislocated. . Historical: - Allergies: 19:38 No Known Allergies; bb - Home Meds: 19:38 None [Active]; bb - PMHx: 19:38 "Lung collapsed"; CHARGE SYNDROME; cleft Palette; bb - PSHx: 19:38 Two Open Heart Surgeries; heart cath; Ear Tubes; bb - Immunization history:: Adult Immunizations up to date. - Social history:: Smoking status: Patient/guardian denies using tobacco. - Ebola Screening: : No symptoms or risks identified at this time. ROS: 19:31 Constitutional: Negative for fever, chills, and weight loss, Cardiovascular: Negative jmm for chest pain, palpitations, and edema, Respiratory: Negative for shortness of breath, cough, wheezing, and pleuritic chest pain. 19:31 MS/extremity: Positive for injury or acute deformity, pain. 19:31 All other systems are negative. Exam: 19:31 Constitutional: This is a well developed, well nourished patient who is awake, alert, jmm and in no acute distress. Head/Face: atraumatic. Eyes: EOMI, no conjunctival erythema appreciated ENT: Moist Mucus Membranes Neck: Trachea midline, Supple Chest/axilla: Normal chest wall appearance and motion. Cardiovascular: Regular rate and rhythm. No edema appreciated Respiratory: Normal respirations, no respiratory distress appreciated Abdomen/GI: Non distended, soft Back: Normal ROM Skin: General appearance color normal 19:31 Musculoskeletal/extremity: ecchymosis noted to the right hand on the ulnar side. painful rom noted to the right 5th phalanx, < 2 sec dist cap refill. NVI. 19:31 Skin: ecchymosis noted to the right hand, no lacerations appreciated. 19:31 Neuro: Orientation: is normal, Mentation: is normal, Memory: is normal. 19:31 Psych: Behavior/mood is pleasant, cooperative. Vital Signs: 19:39 BP 130 / 61; Pulse 95; Resp 16 S; Temp 97.8(O); Pulse Ox 96% on R/A; Weight 70.31 kg bb (R); Height 5 ft. 4 in. (162.56 cm) (R); Pain 8/10; 20:38 BP 122 / 83; Pulse 71; Resp 18; Temp 98.3(TE); Pulse Ox 98% on R/A; ak1 19:39 Body Mass Index 26.61 (70.31 kg, 162.56 cm) bb Procedures: 20:31 Splinting: Splint applied to right hand using ulnar gutter splint. applied by tech. marilynn Examined by me, post splint application: neurovascular intact, 2+ distal pulses palpable, brisk capillary refill noted, Patient tolerated well. MDM: 19:31 Patient medically screened. [facility] 20:31 Data reviewed: vital signs, nurses notes. Counseling: I had a detailed discussion with marilynn the patient and/or guardian regarding: the historical points, exam findings, and any diagnostic results supporting the discharge/admit diagnosis, radiology results, the need for outpatient follow up, to return to the emergency department if symptoms worsen or persist or if there are any questions or concerns that arise at home. 07/06 19:32 Order name: Hand Right 3 View XRAY [facility] 07/06 20:01 Order name: Ulnar Gutter splint; Complete Time: 20:33 marilynn Administered Medications: 19:57 Drug: Motrin 600 mg Route: PO; ss 20:33 Follow up: Response: No adverse reaction ss 20:33 Follow up: Response: No adverse reaction ak1 Disposition: 07/06/19 20:32 Discharged to Home. Impression: Right 5th proximal phalanx fracture. - Condition is Stable. - Discharge Instructions: Finger Fracture. - Prescriptions for Ultracet 37.5- 325 mg Oral Tablet - take 1 tablet by ORAL route every 6 hours - for up to 5 days; do not exceed 8 tablets per day.; 12 tablet. - Medication Reconciliation Form, Thank You Letter, Antibiotic Education, Prescription Opioid Use form. - Follow up: Donell Pineda MD; When: 2 - 3 days; Reason: Recheck today's complaints, Continuance of care, Re-evaluation by your physician. Addendum: 07/09/2019 03:24 Co-signature as Attending Physician, David Morillo MD. g s Signatures: Dispatcher [employer] EDMS Joshua Walton PA PA jmm Ballard, Brenda, RN RN bb Janette Torres RN RN ss Starr, Gregory, MD MD Vilma Wilson RN ak1 Corrections: (The following items were deleted from the chart) 07/06 20:43 20:32 07/06/2019 20:32 Discharged to Home. Impression: Right 5th proximal phalanx ss fracture. Condition is Stable. Forms are Medication Reconciliation Form, Thank You Letter, Antibiotic Education, Prescription Opioid Use. Follow up: Donell Pineda; When: 2 - 3 days; Reason: Recheck today's complaints, Continuance of care, Re-evaluation by your physician. marilynn
--- NOTE | 2019-07-06 20:34 | ER ---
Nurse's Notes [facility] Name: Zion Anand II Age: 33 yrs Sex: Male : 1985 Arrival Date: 07/06/2019 Time: 19:23 Bed 6 Private MD: Diagnosis: Right 5th proximal phalanx fracture Presentation: 07/06 19:37 Presenting complaint: Patient states: he was playing football earlier today and fell on bb his right hand dislocating his right pinky he tried to put it back in but was unable to. Transition of care: patient was not received from another setting of care. Onset of symptoms was July 06, 2019. Risk Assessment: Do you want to hurt yourself or someone else? Patient reports no desire to harm self or others. Initial Sepsis Screen: Does the patient meet any 2 criteria? No. Patient's initial sepsis screen is negative. Does the patient have a suspected source of infection? No. Patient's initial sepsis screen is negative. Care prior to arrival: None. 19:37 Method Of Arrival: Ambulatory bb 19:37 Acuity: ELZBIETA 4 bb Historical: - Allergies: 19:38 No Known Allergies; bb - Home Meds: 19:38 None [Active]; bb - PMHx: 19:38 "Lung collapsed"; CHARGE SYNDROME; cleft Palette; bb - PSHx: 19:38 Two Open Heart Surgeries; heart cath; Ear Tubes; bb - Immunization history:: Adult Immunizations up to date. - Social history:: Smoking status: Patient/guardian denies using tobacco. - Ebola Screening: : No symptoms or risks identified at this time. Screenin:40 Abuse screen: Denies threats or abuse. Denies injuries from another. Nutritional ss screening: No deficits noted. Tuberculosis screening: Never had TB. Fall Risk None identified. Assessment: 19:40 General: Appears in no apparent distress. comfortable, Behavior is calm, cooperative. ss Pain: Complains of pain in dorsal aspect of proximal phalanx of right little finger Pain currently is 8 out of 10 on a pain scale. Quality of pain is described as aching, tender, Is continuous. Neuro: Level of Consciousness is awake, alert, obeys commands, Oriented to person, place, time, situation, Speech is normal, Pupils are PERRLA. Cardiovascular: Capillary refill < 3 seconds is brisk in bilateral fingers Patient's skin is warm and dry. Respiratory: Airway is patent Respiratory effort is even, unlabored, Respiratory pattern is regular, symmetrical. GI: No signs and/or symptoms were reported involving the gastrointestinal system. : No signs and/or symptoms were reported regarding the genitourinary system. EENT: Oral mucosa is moist. Throat is clear. Derm: Bruising that is dark purple, on dorsal aspect of proximal phalanx of right little finger. Musculoskeletal: Circulation, motion, and sensation intact. Range of motion: limited in MCP of right little finger Swelling present in dorsal aspect of proximal phalanx of right little finger. 20:32 Reassessment: Joshua ELI check splint and is agreeable pt can be discharged home. ak1 Vital Signs: 19:39 BP 130 / 61; Pulse 95; Resp 16 S; Temp 97.8(O); Pulse Ox 96% on R/A; Weight 70.31 kg bb (R); Height 5 ft. 4 in. (162.56 cm) (R); Pain 8/10; 20:38 BP 122 / 83; Pulse 71; Resp 18; Temp 98.3(TE); Pulse Ox 98% on R/A; ak1 19:39 Body Mass Index 26.61 (70.31 kg, 162.56 cm) bb ED Course: 19:23 Patient arrived in ED. cl3 19:26 Joshua Walton PA is PHCP. [facility] 19:26 David Morillo MD is Attending Physician. [facility] 19:38 Triage completed. bb 19:39 Arm band placed on Patient placed in an exam room, on a stretcher, on pulse oximetry. bb Affected limb iced. Affected limb elevated. 19:40 Janette Torres, MARI is Primary Nurse. ss 19:40 Patient has correct armband on for positive identification. Bed in low position. Call ss light in reach. 19:40 ICE pack applied and affected area elevated with pillow. ss 19:51 Hand Right 3 View XRAY In Process Unspecified. EDMS 20:32 Donell Pineda MD is Referral Physician. [facility] 20:32 No provider procedures requiring assistance completed. Patient did not have IV access ak1 during this emergency room visit. 20:34 Orthoglass splint: Ulnar gutter/Boxer splint applied on right forearm. lt1 Administered Medications: 19:57 Drug: Motrin 600 mg Route: PO; 20:33 Follow up: Response: No adverse reaction 20:33 Follow up: Response: No adverse reaction ak1 Outcome: 20:32 Discharge ordered by . marilynn 20:41 Discharged to home ambulatory, with significant other. 20:41 Condition: good 20:41 Discharge instructions given to patient, family, Instructed on discharge instructions, follow up and referral plans. medication usage, Demonstrated understanding of instructions, follow-up care, medications, Prescriptions given X 1. 20:43 Patient left the ED. ss Signatures: Dispatcher [employer] EDMS Joshua Walton PA PA jmm Ballard, Brenda RN RN Janette Medina RN RN Vilma Wilson RN RN ak1 Rosalia Maguire lt1 Shreyas Hicks cl3
--- NOTE | 2019-07-06 20:46 | RAD REPORT ---
EXAM DESCRIPTION: RAD - Hand Right 3 View - 07/06/2019 7:47 pm CLINICAL HISTORY: Right hand pain following injury COMPARISON: None. FINDINGS: Transverse fracture is present near the base of the fifth proximal phalanx. Articular surf melisa is not involved. There is minimal dorsal angulation. MCP joint is normal. No other acute bone or joint finding seen. No foreign body or other soft tissue abnormality. IMPRESSION: Right fifth proximal phalanx fracture near the base. There is a mild dorsal angulation.
[2019-07-06 21:13] VITALS: BP 122/83; TEMP 98.3; O2SAT 98
== END 2019-07-06 20:43 | disposition home or self-care (01) ==
LOC: ER 19:18
PROC: 2W3JX1Z Immobilization of Right Finger using Splint (ICD-10-PCS; principal; 2019-07-06)
DX: S62.511A Displaced fracture of proximal phalanx of right thumb, initial encounter for closed fracture (principal); W19.XXXA Unspecified fall, initial encounter; Y93.61 Activity, american tackle football; Y92.9 Unspecified place or not applicable
CPT/HCPCS: 99284

== ENCOUNTER 2020-08-01 23:20 | Emergency (ER) | payer SELFPAY ==
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
--- NOTE | 2020-08-02 00:30 | ER ---
Nurse's Notes [facility] Name: Zion Anand II Age: 35 yrs Sex: Male : 1985 Arrival Date: 08/01/2020 Time: 23:21 Bed 8 Private MD: Diagnosis: Contusion of right thumb with damage to nail-subungual hematoma Presentation: 08/01 23:27 Chief complaint: Patient states: last night ,my right thumb was stuck in the door and I mg2 tried pulling it. Coronavirus screen: Client denies travel out of the [place] in the last 14 days. At this time, the client does not indicate any symptoms associated with coronavirus-19. Ebola Screen: No symptoms or risks identified at this time. Initial Sepsis Screen: Does the patient meet any 2 criteria? No. Patient's initial sepsis screen is negative. Does the patient have a suspected source of infection? No. Patient's initial sepsis screen is negative. Risk Assessment: Do you want to hurt yourself or someone else? Patient reports no desire to harm self or others. Onset of symptoms was August 01, 2020. 23:27 Method Of Arrival: Ambulatory mg2 23:27 Acuity: ELZBIETA 4 mg2 Triage Assessment: 23:29 General: Appears in no apparent distress. comfortable, Behavior is calm, cooperative. mg2 Pain: Complains of pain in right thumb. EENT: No signs and/or symptoms were reported regarding the EENT system. Neuro: Level of Consciousness is awake, alert, obeys commands, Oriented to person, place, time, situation. Cardiovascular: Capillary refill < 3 seconds Patient's skin is warm and dry. Respiratory: Airway is patent Respiratory effort is even, unlabored, Respiratory pattern is regular, symmetrical. GI: No signs and/or symptoms were reported involving the gastrointestinal system. : No signs and/or symptoms were reported regarding the genitourinary system. Derm: No signs and/or symptoms reported regarding the dermatologic system. Musculoskeletal: Circulation, motion, and sensation intact. Capillary refill < 3 seconds, hematoma in the right thumbnail. Injury Description: hematoma/crushed injury. Historical: - Allergies: 23:29 No Known Allergies; mg2 - Home Meds: 23:29 None [Active]; mg2 - PMHx: 23:29 "Lung collapsed"; CHARGE SYNDROME; cleft Palette; mg2 - PSHx: 23:29 open heart sx when he was 1 yo; mg2 - Immunization history:: Flu vaccine status is unknown. - Social history:: Smoking status: Patient denies any tobacco usage or history of. Patient/guardian denies using alcohol, street drugs, IV drugs. Screenin:31 Abuse screen: Denies threats or abuse. Denies injuries from another. Nutritional mg2 screening: No deficits noted. Tuberculosis screening: No symptoms or risk factors identified. Fall Risk None identified. Assessment: 23:30 General: see triage notes. mg2 Vital Signs: 23:27 BP 152 / 110; Pulse 64; Resp 18; Temp 98; Pulse Ox 97% on R/A; Weight 63.5 kg; Height 5 mg2 ft. 4 in. (162.56 cm); Pain 10/10; 09 00:31 BP 138 / 78; Pulse 66; Resp 18; Pulse Ox 98% on R/A; mg2 08/01 23:27 Body Mass Index 24.03 (63.50 kg, 162.56 cm) mg2 ED Course: 08/01 23:21 Patient arrived in ED. am2 23:24 Hamida Dallas, RN is Primary Nurse. mt2 23:29 Triage completed. mg2 23:30 Arm band placed on. mg2 23:31 Patient has correct armband on for positive identification. Door closed. mg2 23:31 Patient did not have IV access during this emergency room visit. mg2 23:36 Dwaine Polanco NP is PHCP. pm1 23:36 Eddie Ortiz MD is Attending Physician. pm1 08/02 00:06 Hand Right 3 View XRAY In Process Unspecified. EDMS 00:37 cauterize the right thumb to relieve the hematoma done by the provider. mg2 Administered Medications: 00:38 Drug: Motrin 600 mg Route: PO; mg2 00:38 Follow up: Response: No adverse reaction; Medication administered at discharge. mg2 Outcome: 00:30 Discharge ordered by . pm1 00:37 Discharged to home ambulatory. mg2 00:37 Condition: stable 00:37 Discharge instructions given to patient, Instructed on discharge instructions, follow up and referral plans. medication usage, Demonstrated understanding of instructions, follow-up care, medications, wound care, Prescriptions given X 1. 00:38 Patient left the ED. mg2 Signatures: Dispatcher [employer] EDMS Dwaine Polanco, WALDO NO EXPERIENCE pm1 Valerie Pritchett am2 Faheem Brown, RN RN mg2 Hamida Dallas RN RN mt2 Corrections: (The following items were deleted from the chart) 00:37 [id number] 23:31 No provider procedures requiring assistance completed. mg2 mg2
[2020-08-02] MEDS ORDERED: IBUPROFEN 200 MG TAB PO ONE (00:47)
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
[2020-08-02 19:38] VITALS: TEMP 98
[2020-08-02 19:39] VITALS: BP 138/78; O2SAT 98
== END 2020-08-02 00:38 | disposition home or self-care (01) ==
LOC: ER 23:20
PROC: 0H9QXZZ Drainage of Finger Nail, External Approach (ICD-10-PCS; principal; 2020-08-02)
DX: S60.111A Contusion of right thumb with damage to nail, initial encounter (principal); W23.0XXA Caught, crushed, jammed, or pinched between moving objects, initial encounter; Y93.9 Activity, unspecified; Y92.9 Unspecified place or not applicable
CPT/HCPCS: 99283

== ENCOUNTER 2021-01-23 06:38 | Emergency (ER) | payer SELFPAY ==
[2021-01-23] MEDS ORDERED: ONDANSETRON 4 MG/2 ML VIAL ONE ×2 (07:15→08:57)
[2021-01-23] MEDS ORDERED: MORPHINE 4 MG/ML SYR ONE ×2 (07:15→08:57)
[2021-01-23] MEDS ORDERED: TETANUS & DIPHTHERIA TOX,ADULT 0.5 ML VIAL ONE (07:15)
[2021-01-23 07:16] LABS: RBC Red Blood Cell Count 4.62 M/uL (4.33-5.43)
[2021-01-23 07:17] LABS: Absolute Lymphocytes (CBC) 1.5 K/uL (0.7-4.9); Basophils % 0.6 % (0-1.3); Hematocrit 41.8 % (39.6-49.0); Lymphocytes % 10.4 % (15.3-44.8); MPV 8.6 fL (7.6-11.3)
[2021-01-23 07:20] LABS: Protime INR 0.87
[2021-01-23 07:30] LABS: BUN Blood Urea Nitrogen 12 mg/dL (7-18); Bicarbonate 27 mmol/L (21-32); Glucose Level 97 mg/dL (74-106); Potassium 4.1 mmol/L (3.5-5.1); Sodium Level 141 mmol/L (136-145)
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
[2021-01-23] MEDS ORDERED: LIDOCAINE 1% W/EPI 1:100,000 MDV 20 ML VIAL ONE (09:10)
[2021-01-23] MEDS ORDERED: CEFAZOLIN/SWI 1gm 1 GM/10 ML SYR ONE (09:11)
[2021-01-23 09:55] VITALS: TEMP 97.6
[2021-01-23 09:58] VITALS: BP 116/74; O2SAT 98
== END 2021-01-23 09:44 | disposition home or self-care (01) ==
LOC: ER 06:38
PROC: 0JQ10ZZ Repair Face Subcutaneous Tissue and Fascia, Open Approach (ICD-10-PCS; principal; 2021-01-23)
DX: S01.81XA Laceration without foreign body of other part of head, initial encounter (principal); V43.52XA Car driver injured in collision with other type car in traffic accident, initial encounter; Z23 Encounter for immunization
CPT/HCPCS: 36415; 70450; 70486; 71260; 72125; 74177; 76377; 80048; 85025; 85610; 85730; 86850; 86900; 86901; 90471; 90714; 96374; 96375; 99285; G0390; J0690; J2405; Q9967

== ENCOUNTER 2021-08-26 16:53 | Emergency (ER) | payer SELFPAY ==
--- NOTE | 2021-08-26 19:00 | ER ---
Nurse's Notes [facility] Name: Zion Anand II Age: 36 yrs Sex: Male : 1985 Arrival Date: 08/26/2021 Time: 16:55 Bed 16 Private MD: Diagnosis: Allergic contact dermatitis due to plants, except food Presentation: 08/26 17:13 Chief complaint: Patient states: Rash with itching to body for 2 days. 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 Coronavirus screen: Vaccine status: Patient reports being unvaccinated. Client denies travel out of the [place] in the last 14 days. At this time, the client does not indicate any symptoms associated with coronavirus-19. Ebola Screen: Patient denies travel to an Ebola-affected area in the 21 days before illness onset. Initial Sepsis Screen: Does the patient meet any 2 criteria? No. Patient's initial sepsis screen is negative. Does the patient have a suspected source of infection? Yes: Skin breakdown/wound. Risk Assessment: Do you want to hurt yourself or someone else? Patient reports no desire to harm self or others. Onset of symptoms was August 25, 2021. 17:13 Method Of Arrival: Ambulatory 1 17:13 Acuity: ELZBIETA 4 ll1 Historical: - Allergies: 17:12 No Known Drug Allergies; ll1 - PMHx: 17:12 "Lung collapsed"; CHARGE SYNDROME; cleft Palette; ll1 - PSHx: 17:12 heart SX; ll1 - Immunization history:: Client reports having NOT received the Covid vaccine. Flu vaccine is not up to date. - Social history:: Smoking status: Patient denies any tobacco usage or history of. Vital Signs: 17:13 BP 132 / 86; Pulse 61; Resp 16; Temp 96.9; Pulse Ox 100% ; Weight 58.97 kg; Height 5 ll1 ft. 4 in. (162.56 cm); Pain 0/10; 17:13 Body Mass Index 22.31 (58.97 kg, 162.56 cm) ll1 ED Course: 16:55 Patient arrived in ED. as 17:13 Arm band placed on. ll1 17:14 Triage completed. ll1 17:51 Patient placed in an exam room, on a stretcher. iw 18:18 Sj Perez PA is PHCP. cp 18:18 Nabil Frias MD is Attending Physician. cp 19:08 Noel Reynoso, MARI is Primary Nurse. mr2 Administered Medications: 19:24 Drug: SOLU-Medrol (methylPREDNISolone sodium succinate) 125 mg Route: IM; Site: left mr2 deltoid; 19:24 Drug: Benadryl (diphenhydrAMINE) 25 mg Route: IM; Site: left deltoid; mr2 19:25 Drug: Pepcid (famotidine) 20 mg Route: PO; mr2 Outcome: 18:59 Discharge ordered by . cp 20:05 Patient left the ED. mr2 Signatures: Rocío Reveles Irene, RN RN Sj Perez PA PA cp Lázaro Hicks RN RN ll1 Noel Reynoso RN RN mr2
--- NOTE | 2021-08-26 19:00 | EDPHYS ---
Physician Documentation [facility] Name: Zion Anand II Age: 36 yrs Sex: Male : 1985 Arrival Date: 08/26/2021 Time: 16:55 Bed 16 Private MD: ED Physician Nabil Frias HPI: 08/26 18:45 This 36 yrs old Male presents to ER via Ambulatory with complaints of Rash. cp 18:45 The patient's rash thought to be caused by Contact allergy. The rash is located on the cp body diffusely. The rash can be described as erythematous, itchy. Onset: The symptoms/episode began/occurred 2 day(s) ago. Associated signs and symptoms: Pertinent positives: burning sensation, itching, Pertinent negatives: fever, swelling of lips, swelling of throat, swelling of tongue, wheezing. Severity of symptoms: in the emergency department the symptoms are unchanged despite home interventions. Treatment given at home: Benadryl. 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 Patient reports swelling below right eye. Historical: - Allergies: 17:12 No Known Drug Allergies; ll1 - PMHx: 17:12 "Lung collapsed"; CHARGE SYNDROME; cleft Palette; ll1 - PSHx: 17:12 heart SX; ll1 - Immunization history:: Client reports having NOT received the Covid vaccine. Flu vaccine is not up to date. - Social history:: Smoking status: Patient denies any tobacco usage or history of. ROS: 18:50 Constitutional: Negative for body aches, chills, fever, poor PO intake. cp 18:50 ENT: Negative for drainage from ear(s), ear pain, sore throat, difficulty swallowing, cp difficulty handling secretions. 18:50 Cardiovascular: Negative for chest pain. 18:50 Respiratory: Negative for cough, shortness of breath, wheezing. 18:50 Skin: Positive for rash, diffusely. 18:50 Neuro: Negative for dizziness, headache, weakness. 18:50 All other systems are negative. Exam: 18:55 Constitutional: The patient appears in no acute distress, alert, awake, non-toxic, well cp developed, well nourished. 18:55 Head/face: Noted is swelling, that is mild, of the below right eye. cp 18:55 Eyes: Pupils: equal, round, and reactive to light and accomodation, Extraocular movements: intact throughout, Conjunctiva: normal, no exudate, no injection, Sclera: no appreciated abnormality. 18:55 ENT: External ear(s): are unremarkable, Nose: is normal, Mouth: Lips: moist, Oral mucosa: pink and intact, moist, Posterior pharynx: Airway: no evidence of obstruction, patent, swelling, is not appreciated, erythema, is not appreciated, exudate, is not appreciated, Voice: is normal. 18:55 Neck: ROM/movement: is normal, is supple, without pain, no range of motions limitations. 18:55 Chest/axilla: Palpation: is normal, no crepitus, no tenderness. 18:55 Cardiovascular: Rate: normal, Rhythm: regular. 18:55 Respiratory: the patient does not display signs of respiratory distress, Respirations: normal, no use of accessory muscles, no retractions, labored breathing, is not present, Breath sounds: are clear throughout, no decreased breath sounds, no stridor, no wheezing. 18:55 Abdomen/GI: Exam negative for discomfort, distension, guarding, Palpation: abdomen is soft and non-tender, in all quadrants. 18:55 Skin: rash a moderate rash is noted, consistent with hives, and is diffusely located. Vital Signs: 17:13 BP 132 / 86; Pulse 61; Resp 16; Temp 96.9; Pulse Ox 100% ; Weight 58.97 kg; Height 5 ll1 ft. 4 in. (162.56 cm); Pain 0/10; 17:13 Body Mass Index 22.31 (58.97 kg, 162.56 cm) ll1 MDM: 18:55 Differential diagnosis: angioedema, anaphylaxis, hives, urticaria. cp 18:59 Patient medically screened. cp 18:59 Data reviewed: vital signs, nurses notes. cp 18:59 Counseling: I had a detailed discussion with the patient and/or guardian regarding: the cp historical points, exam findings, and any diagnostic results supporting the discharge/admit diagnosis, to return to the emergency department if symptoms worsen or persist or if there are any questions or concerns that arise at home. ED course: VSS. Patient appears non-toxic and no signs of respiratory distress. Will discharge to home for continued monitoring. Administered Medications: 19:24 Drug: SOLU-Medrol (methylPREDNISolone sodium succinate) 125 mg Route: IM; Site: left mr2 deltoid; 19:24 Drug: Benadryl (diphenhydrAMINE) 25 mg Route: IM; Site: left deltoid; mr2 19:25 Drug: Pepcid (famotidine) 20 mg Route: PO; mr2 Disposition: 19:15 Chart complete. cp Disposition Summary: 08/26/21 18:59 Discharge Ordered Location: Home cp Problem: new cp Symptoms: have improved cp Condition: Stable cp Diagnosis - Allergic contact dermatitis due to plants, except food cp Followup: cp - With: Private Physician - When: 2 - 3 days - Reason: Worsening of condition Discharge Instructions: - Discharge Summary Sheet cp - Contact Dermatitis cp - Poison Delmi Dermatitis cp Forms: - Medication Reconciliation Form cp - Thank You Letter cp - Antibiotic Education cp - Prescription Opioid Use cp Prescriptions: - Pepcid 20 mg Oral Tablet - take 1 tablet by ORAL route every 12 hours for 10 days; 20 tablet; Refills: 0, cp Product Selection Permitted - Prednisone 20 mg Oral Tablet - take 3 tablets by ORAL route once daily for 5 days , then take 2 tablest daily cp for 3 days, then 1 tablet daily for 2 days; 21 tablet; Refills: 0, Product Selection Permitted - Vistaril 25 mg Oral capsule - take 1 capsule by ORAL route 4 times per day As needed may take for itching; 30 cp capsule; Refills: 0, Product Selection Permitted - Triamcinolone Acetonide 0.5 % Topical Cream - apply 1 application by TOPICAL route 2 times per day As needed apply to areas cp of rash except face and genitals; 1 tube; Refills: 0, Product Selection Permitted Addendum: 08/29/2021 07:00 Co-signature as Attending Physician, Nabil Frias MD I agree with the assessment and r n plan of care. Attestation: The patient's history, exam findings, diagnostics, and a summary of any interventions or procedures was reviewed in detail with Sj ELI. Signatures: Nabil Frias MD MD rn Page, Corey, PA PA cp Lázaro Hicks RN RN ll1 Noel Reynoso RN RN mr2
[2021-08-26] MEDS ORDERED: METHYLPREDNISOLONE 125 MG INJ ONE (19:43)
[2021-08-26] MEDS ORDERED: DIPHENHYDRAMINE 50 MG/ML VIAL ONE (19:43)
[2021-08-26] MEDS ORDERED: FAMOTIDINE 20 MG/2 ML VIAL IV ONE (19:44)
[2021-08-26] MEDS ORDERED: FAMOTIDINE 20 MG TAB ONE (19:44)
[2021-08-26 20:12] VITALS: BP 132/86; TEMP 96.9; O2SAT 100
== END 2021-08-26 20:05 | disposition home or self-care (01) ==
LOC: ER 16:53
DX: L23.7 Allergic contact dermatitis due to plants, except food (principal)
CPT/HCPCS: 96372; 99282; J1200; J2930

== ENCOUNTER 2021-10-30 01:54 | Emergency (ER) | payer SELFPAY ==
--- NOTE | 2021-10-30 02:26 | EDPHYS ---
Physician Documentation [facility] Name: Zion Anand II Age: 36 yrs Sex: Male : 1985 Arrival Date: 10/30/2021 Time: 01:58 Bed 5 Private MD: ED Physician Ryan Mantilla HPI: 10/30 02:17 This 36 yrs old Male presents to ER via Ambulatory with complaints of Allergic Reaction mh7 - Poison Delmi. 02:17 The patient presents with itching, rash, of the right arm and left arm. Onset: The mh7 symptoms/episode began/occurred 2 day(s) ago. Associated signs and symptoms: Pertinent positives: rash, Pertinent negatives: abdominal pain, Altered mental status chest pain, dysphagia, fever, headache, hives, Light headed nausea, shortness of breath, swelling, Syncope vomiting. Possible causes: poison delmi. At home the patient or guardian has treated the symptoms with Benadryl, Pepcid. Severity of symptoms: At their worst the symptoms were mild yesterday, in the emergency department the symptoms have improved moderately. Patient states that he came in contact with poison delmi a few days ago and had developed a rash. He states he has been taking Pepcid and Benadryl from a prior encounter and has noticed some improvement. Denies any facial swelling, tongue swelling, throat swelling, chest pain, shortness of breath, nausea, vomiting, fever, or other complaints.. Historical: - Allergies: 02:07 No Known Allergies; as6 - Home Meds: 02:07 None [Active]; as6 - PMHx: 02:07 "Lung collapsed"; CHARGE SYNDROME; cleft Palette; as6 - PSHx: 02:07 heart SX; cleft pallet; eye; as6 - Immunization history:: Adult Immunizations not up to date, Last tetanus immunization: < 10 years ago. - Social history:: Smoking status: Patient denies any tobacco usage or history of. ROS: 02:17 Constitutional: Negative for fever, chills, and weight loss, Eyes: Negative for injury, mh7 pain, redness, and discharge, ENT: Negative for injury, pain, and discharge, Neck: Negative for injury, pain, and swelling, Cardiovascular: Negative for chest pain, palpitations, and edema, Respiratory: Negative for shortness of breath, cough, wheezing, and pleuritic chest pain, Abdomen/GI: Negative for abdominal pain, nausea, vomiting, diarrhea, and constipation, Back: Negative for injury and pain, : Negative for injury, bleeding, discharge, and swelling, MS/Extremity: Negative for injury and deformity, Neuro: Negative for headache, weakness, numbness, tingling, and seizure, Psych: Negative for depression, anxiety, suicide ideation, homicidal ideation, and hallucinations, Allergy/Immunology: Negative for hives, rash, and allergies, Endocrine: Negative for neck swelling, polydipsia, polyuria, polyphagia, and marked weight changes, Hematologic/Lymphatic: Negative for swollen nodes, abnormal bleeding, and unusual bruising. Exam: 02:17 Constitutional: This is a well developed, well nourished patient who is awake, alert, mh7 and in no acute distress. Head/Face: Normocephalic, atraumatic. Eyes: Pupils equal round and reactive to light, extra-ocular motions intact. Lids and lashes normal. Conjunctiva and sclera are non-icteric and not injected. Cornea within normal limits. Periorbital areas with no swelling, redness, or edema. ENT: Nares patent. No nasal discharge, no septal abnormalities noted. Tympanic membranes are normal and external auditory canals are clear. Oropharynx with no redness, swelling, or masses, exudates, or evidence of obstruction, uvula midline. Mucous membranes moist. Neck: Trachea midline, no thyromegaly or masses palpated, and no cervical lymphadenopathy. Supple, full range of motion without nuchal rigidity, or vertebral point tenderness. No Meningismus. Chest/axilla: Normal chest wall appearance and motion. Nontender with no deformity. No lesions are appreciated. Cardiovascular: Regular rate and rhythm with a normal S1 and S2. No gallops, murmurs, or rubs. Normal PMI, no JVD. No pulse deficits. Respiratory: Lungs have equal breath sounds bilaterally, clear to auscultation and percussion. No rales, rhonchi or wheezes noted. No increased work of breathing, no retractions or nasal flaring. Abdomen/GI: Soft, non-tender, with normal bowel sounds. No distension or tympany. No guarding or rebound. No evidence of tenderness throughout. Back: No spinal tenderness. No costovertebral tenderness. Full range of motion. 02:17 MS/ Extremity: Pulses equal, no cyanosis. Neurovascular intact. Full, normal range of motion. Neuro: Awake and alert, GCS 15, oriented to person, place, time, and situation. Cranial nerves II-XII grossly intact. Motor strength 5/5 in all extremities. Sensory grossly intact. Cerebellar exam normal. Normal gait. Psych: Awake, alert, with orientation to person, place and time. Behavior, mood, and affect are within normal limits. 02:17 Skin: rash a mild rash is noted, rash can be described as nonspecific, on the right arm and left arm. Vital Signs: 02:04 BP 139 / 93; Pulse 64; Resp 20 S; Temp 97.6(O); Pulse Ox 99% on R/A; Weight 63.5 kg as6 (R); Height 5 ft. 4 in. (162.56 cm) (R); Pain 7/10; 02:04 Body Mass Index 24.03 (63.50 kg, 162.56 cm) as6 MDM: 02:17 Differential diagnosis: non IgE mediated drug reaction urticaria, Contact dermatitis. mh7 Data reviewed: vital signs, nurses notes. Data interpreted: Pulse oximetry: on room air is 99 %. Interpretation: normal. Counseling: I had a detailed discussion with the patient and/or guardian regarding: the historical points, exam findings, and any diagnostic results supporting the discharge/admit diagnosis, the presence of at least one elevated blood pressure reading (>120/80) during this emergency department visit, the need for outpatient follow up, an allergy/building specialist, a clinical operations consultant, to return to the emergency department if symptoms worsen or persist or if there are any questions or concerns that arise at home. 02:25 Patient medically screened. [facility] Administered Medications: No medications were administered Disposition Summary: 10/30/21 02:25 Discharge Ordered Location: Home [facility] Problem: an acute exacerbation [facility] Symptoms: have improved mh Condition: Stable mh7 Diagnosis - Unspecified contact dermatitis due to plants, except food mh7 Followup: mh7 - With: Private Physician - When: 1 - 2 days - Reason: Worsening of condition, Recheck today's complaints, Continuance of care, Re-evaluation by your physician Followup: mh7 - With: Carlos Eid MD - When: 1 - 2 days - Reason: Worsening of condition, Recheck today's complaints Followup: [facility] - With: Jordan Buitrago MD - When: 1 - 2 days - Reason: Worsening of condition, Recheck today's complaints Discharge Instructions: - Discharge Summary Sheet [facility] - Poison Delmi Dermatitis, Foli-en-Tbja [facility] - Contact Dermatitis, Ajgy-se-Hgvz [facility] Forms: - Medication Reconciliation Form [facility] - Thank You Letter [facility] - Antibiotic Education [facility] - Prescription Opioid Use [facility] Prescriptions: - Benadryl 25 mg Oral Capsule - take 1 capsule by ORAL route every 6 hours As needed; 20 tablet; Refills: 0, [facility] Product Selection Permitted - Pepcid 20 mg Oral Tablet - take 1 tablet by ORAL route every 12 hours for 5 days; 10 tablet; Refills: 0, [facility] Product Selection Permitted - Triamcinolone Acetonide 0.5 % Topical Cream - apply 1 application by TOPICAL route 2 times per day As needed; 1 tube; [facility] Refills: 0, Product Selection Permitted Signatures: Ryan Mantilla MD MD [facility] Mukul Elena RN RN as6
--- NOTE | 2021-10-30 02:26 | ER ---
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 Coronavirus screen: At this time, the client does not indicate any symptoms associated with coronavirus-19. Ebola Screen: No symptoms or risks identified at this time. Onset: The symptoms/episode began/occurred 2 day(s) ago. Anaphylaxis evaluation, no signs or symptoms of anaphylaxis were noted. Initial Sepsis Screen: Does the patient meet any 2 criteria? No. Patient's initial sepsis screen is negative. Does the patient have a suspected source of infection? No. Patient's initial sepsis screen is negative. Risk Assessment: Do you want to hurt yourself or someone else? Patient reports no desire to harm self or others. Onset of symptoms was October 28, 2021. 02:04 Method Of Arrival: Ambulatory as6 02:04 Acuity: ELZBIETA 3 as6 Triage Assessment: 02:33 General: Appears in no apparent distress. Pain: Complains of pain in right arm Pain tw5 currently is 6 out of 10 on a pain scale. Historical: - Allergies: 02:07 No Known Allergies; as6 - Home Meds: 02:07 None [Active]; as6 - PMHx: 02:07 "Lung collapsed"; CHARGE SYNDROME; cleft Palette; as6 - PSHx: 02:07 heart SX; cleft pallet; eye; as6 - Immunization history:: Adult Immunizations not up to date, Last tetanus immunization: < 10 years ago. - Social history:: Smoking status: Patient denies any tobacco usage or history of. Screenin:06 Nutritional screening: No deficits noted. Fall Risk. tw5 02:32 Abuse screen: Denies threats or abuse. Denies injuries from another. Tuberculosis tw5 screening: No symptoms or risk factors identified. 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 He states " I tw5 have been using the creams, and I even poured bleach on my arms. The itching is only getting worse. I took some pepcid that I had left over from my previous ER visit. Respiratory: Airway is patent Trachea midline Respiratory effort is even, unlabored, Breath sounds are clear in right upper lobe and left upper lobe. 02:32 General: Behavior is agitated, Reports "Yall are wasting my time, it was stupid for me tw5 to come up here". Vital Signs: 02:04 BP 139 / 93; Pulse 64; Resp 20 S; Temp 97.6(O); Pulse Ox 99% on R/A; Weight 63.5 kg as6 (R); Height 5 ft. 4 in. (162.56 cm) (R); Pain 7/10; 02:04 Body Mass Index 24.03 (63.50 kg, 162.56 cm) as6 ED Course: 01:58 Patient arrived in ED. 01:59 Susie Hutton is Primary Nurse. tw5 02:06 Patient has correct armband on for positive identification. Bed in low position. Call tw5 light in reach. Side rails up X 1. Pulse ox on. NIBP on. Door closed. Moved to private room. 02:07 Ryan Mantilla MD is Attending Physician. mh7 02:07 Triage completed. as6 02:09 Arm band placed on. as6 02:24 Carlos Eid MD is Referral Physician. mh7 02:24 Jordan Buitrago MD is Referral Physician. 7 02:32 No provider procedures requiring assistance completed. Patient did not have IV access tw5 during this emergency room visit. Administered Medications: No medications were administered Outcome: 02:25 Discharge ordered by . mh7 02:32 Discharged to home ambulatory. tw5 02:32 Condition: good 02:32 Discharge instructions given to patient, Instructed on discharge instructions, follow up and referral plans. Demonstrated understanding of instructions, follow-up care, medications, Prescriptions given X 3. 02:33 Patient left the ED. tw5 Signatures: Ryan Mantilla MD MD [facility] Ankita Allison Susie Hutton tw5 Mukul Elena, RN RN as6
[2021-10-30 02:46] VITALS: BP 139/93; TEMP 97.6; O2SAT 99
== END 2021-10-30 02:33 | disposition home or self-care (01) ==
LOC: ER 01:54
DX: L25.5 Unspecified contact dermatitis due to plants, except food (principal)
CPT/HCPCS: 99283

== ENCOUNTER 2023-01-13 21:10 | Emergency (ER) | payer SELFPAY ==
--- NOTE | 2023-01-13 23:58 | EDPHYS ---
Physician Documentation [facility] Name: Zion Anand II Age: 37 yrs Sex: Male : 1985 Arrival Date: 01/13/2023 Time: 21:13 Bed 25 Private MD: ED Physician Trinidad Turner HPI: 01/14 00:03 This 37 yrs old Male presents to ER via Ambulatory with complaints of COVID+, Cough. kb 00:03 The patient or guardian reports cough. Onset: The symptoms/episode began/occurred 2 kb day(s) ago. Severity of symptoms: At their worst the symptoms were mild, moderate, in the emergency department the symptoms are unchanged. Modifying factors: The symptoms are alleviated by nothing, the symptoms are aggravated by nothing. Associated signs and symptoms: The patient has no apparent associated signs or symptoms. The patient has not experienced similar symptoms in the past. The patient has not recently seen a physician. Historical: - Allergies: 01/13 21:35 No Known Allergies; as6 - PMHx: 21:35 "Lung collapsed"; CHARGE SYNDROME; cleft Palette; as6 - PSHx: 21:35 cleft pallet; eye; heart SX; as6 - Immunization history:: Client reports having NOT received the Covid vaccine. - Social history:: Smoking status: Patient denies any tobacco usage or history of. ROS: 01/14 00:03 Constitutional: Negative for fever, chills, and weight loss. kb Respiratory: Positive for cough, Negative for dyspnea on exertion, hemoptysis, orthopnea, pleurisy, shortness of breath, sputum production, wheezing. All other systems are negative. Exam: 00:03 Constitutional: This is a well developed, well nourished patient who is awake, alert, kb and in no acute distress. Head/Face: Normocephalic, atraumatic. ENT: Moist Mucous membranes Respiratory: Respirations even and unlabored. No increased work of breathing. Talking in full sentences Abdomen/GI: Soft, non-tender. No distention Skin: Warm, dry with normal turgor. Normal color. MS/ Extremity: Pulses equal, no cyanosis. Neurovascular intact. Full, normal range of motion. Neuro: Awake and alert, GCS 15, oriented to person, place, time, and situation. Moves all extremities. Normal gait. 00:03 Cardiovascular: Rate: normal, Rhythm: regular, Pulses: no pulse deficits are appreciated, Heart sounds: murmur. Vital Signs: 01/13 21:37 BP 132 / 83; Pulse 74; Resp 20 S; Temp 98.3(O); Pulse Ox 99% on R/A; Weight 63.5 kg as6 (R); Height 5 ft. 4 in. (162.56 cm) (R); Pain 0/10; 23:28 BP 124 / 82; Pulse 67; Resp 16 S; Temp 98.3(O); Pulse Ox 98% on R/A; bb 21:37 Body Mass Index 24.03 (63.50 kg, 162.56 cm) as6 MDM: 21:40 Patient medically screened. kb 01/14 00:00 Differential diagnosis: viral Infection, bacterial infection, URI, pneumonia COVID. kb Data reviewed: vital signs, nurses notes. Counseling: I had a detailed discussion with the patient and/or guardian regarding: the historical points, exam findings, and any diagnostic results supporting the discharge/admit diagnosis, radiology results, the need for outpatient follow up, a family practitioner, to return to the emergency department if symptoms worsen or persist or if there are any questions or concerns that arise at home. ED course: Patient is a 37-year-old male who presents for cough. States he tested positive for COVID 2 days ago and has had an intermittent cough. States he sometimes has coughing fits that last for a long period of time. Came in because he has a history of pneumothorax so he wanted to get a chest x-ray to make sure it looked okay. Lungs clear on exam, heart murmur noted which is normal for patient. Chest x-ray negative for pneumonia or pneumothorax. Patient educated on [id number] treatment and need for follow-up with PCP. 01/13 21:40 Order name: Chest Pa And Lat (2 Views) XRAY judith Administered Medications: No medications were administered Disposition Summary: 01/13/23 23:58 Discharge Ordered Location: Home kb Condition: Stable kb Diagnosis - SARS-associated coronavirus as the cause of diseases classified elsewhere kb Followup: kb - With: Emergency Department - When: As needed - Reason: Worsening of condition Followup: kb - With: Private Physician - When: 2 - 3 days - Reason: Recheck today's complaints, Continuance of care, Re-evaluation by your physician Discharge Instructions: - Discharge Summary Sheet kb - COVID-19 kb - Viral Illness, Adult kb Forms: - Medication Reconciliation Form kb - Thank You Letter kb - Antibiotic Education kb - Prescription Opioid Use kb - Work release form bb Signatures: Dispatcher [employer] Mee Cadena, JAYCE-C Mukul Villanueva RN RN as6
--- NOTE | 2023-01-13 23:58 | ER ---
Nurse's Notes [facility] Name: Zion Anand II Age: 37 yrs Sex: Male : 1985 Arrival Date: 01/13/2023 Time: 21:13 Bed 25 Private MD: Diagnosis: SARS-associated coronavirus as the cause of diseases classified elsewhere Presentation: 01/13 21:33 Chief complaint: Patient states: "I tested positive for COVID on Sunday and I have as6 this bad cough that won't go away and I'm worried cause I have lung problems". Coronavirus screen: Client presents with at least one sign or symptom that may indicate coronavirus-19. Ebola Screen: No symptoms or risks identified at this time. Risk Assessment: Do you want to hurt yourself or someone else? Patient reports no desire to harm self or others. Onset of symptoms was January 09, 2023. 21:33 Method Of Arrival: Ambulatory as6 21:38 Initial Sepsis Screen: Does the patient meet any 2 criteria? No. Patient's initial as6 sepsis screen is negative. Does the patient have a suspected source of infection? No. Patient's initial sepsis screen is negative. 21:38 Acuity: ELZBIETA 4 as6 Historical: - Allergies: 21:35 No Known Allergies; as6 - PMHx: 21:35 "Lung collapsed"; CHARGE SYNDROME; cleft Palette; as6 - PSHx: 21:35 cleft pallet; eye; heart SX; as6 - Immunization history:: Client reports having NOT received the Covid vaccine. - Social history:: Smoking status: Patient denies any tobacco usage or history of. Screenin:30 [facility] ED Fall Risk Assessment (Adult) History of falling in the last 3 months, bb including since admission No falls in past 3 months (0 pts). [facility] ED Fall Risk Assessment (Adult) Score/Fall Risk Level 0 - 2 = Low Risk Oriented to surroundings, Maintained a safe environment. Abuse screen: Denies threats or abuse. Nutritional screening: No deficits noted. Tuberculosis screening: No symptoms or risk factors identified. Assessment: 22:30 General: Appears in no apparent distress. Behavior is calm, cooperative. Pain: Denies bb pain. Neuro: Level of Consciousness is awake, alert, obeys commands, Oriented to person, place, time, situation. Cardiovascular: Capillary refill < 3 seconds Patient's skin is warm and dry. Respiratory: Respiratory effort is even, unlabored, Respiratory pattern is regular, Breath sounds are clear bilaterally. GI: No signs and/or symptoms were reported involving the gastrointestinal system. Derm: Skin is pink, warm \\T\\ dry. Musculoskeletal: Circulation, motion, and sensation intact. 23:27 Reassessment: No changes from previously documented assessment. Patient and/or family bb updated on plan of care and expected duration. Pain level reassessed. awaiting Xray results. 01/14 00:10 Reassessment: Patient is alert, oriented x 3, equal unlabored respirations, skin bb warm/dry/pink. pt verbalized understanding of and agrees to plan of care discharge instructions given pt ambulated with steady gait to exit. Vital Signs: 01/13 21:37 BP 132 / 83; Pulse 74; Resp 20 S; Temp 98.3(O); Pulse Ox 99% on R/A; Weight 63.5 kg as6 (R); Height 5 ft. 4 in. (162.56 cm) (R); Pain 0/10; 23:28 BP 124 / 82; Pulse 67; Resp 16 S; Temp 98.3(O); Pulse Ox 98% on R/A; bb 21:37 Body Mass Index 24.03 (63.50 kg, 162.56 cm) as6 ED Course: 21:13 Patient arrived in ED. jj6 21:35 Arm band placed on. as6 21:38 Triage completed. as6 21:40 Mee Mckenna FNP-C [facility]. kb 21:40 Trinidad Turner MD is Attending Physician. kb 22:30 Patient has correct armband on for positive identification. Bed in low position. Call bb light in reach. Pulse ox on. NIBP on. 23:26 Fabi Gracia RN is Primary Nurse. bb 01/14 00:10 No provider procedures requiring assistance completed. Patient did not have IV access bb during this emergency room visit. Administered Medications: No medications were administered Medication: 01/13 22:30 VIS not applicable for this client. bb Outcome: 23:58 Discharge ordered by . judith 01/14 00:10 Discharged to home ambulatory. bb Condition: stable Discharge instructions given to patient, Instructed on discharge instructions, follow up and referral plans. Demonstrated understanding of instructions, follow-up care. 00:10 Patient left the ED. bb Signatures: Mee Mckenna, JAYCE-C JAYCE-Fabi Campos, RN RN bb Lola Espinosa jj6 Mukul Elena RN RN as6
[2023-01-14 01:06] VITALS: TEMP 98.3
[2023-01-14 01:08] VITALS: BP 124/82; O2SAT 98
--- NOTE | 2023-01-15 13:32 | RAD REPORT ---
EXAM DESCRIPTION: RAD - Chest Pa And Lat (2 Views) - 01/13/2023 10:59 pm CLINICAL HISTORY: 37 years Male COUGH COMPARISON: None TECHNIQUE: 2 view study of the chest was performed. FINDINGS: Cardiac silhouette is enlarged. Central vessels are not increased. Mediastinal and chest w all surgical clips. No infiltrates or effusions seen. No pneumothorax. IMPRESSION: Enlarged heart with no evidence for congestive heart failure. No infiltrate seen. Electronically signed by: Bea Steinberg MD 01/13/2023 11:40 PM [employer] Due to temporary technical issues with the PACS/Fluency reporting system, reports are being signed by the in house radiologists without review as a courtesy to insure prompt reporting. The interpreting radiologist is fully responsible for the content of the report.
== END 2023-01-14 00:10 | disposition home or self-care (01) ==
LOC: ER 21:10
DX: U07.1 COVID-19 (principal)
CPT/HCPCS: 71046; 99283